=== PATIENT | male | born 1975 | race Caucasian/White ===

== ENCOUNTER 2019-01-23 06:59 | Day surgery (SDC) | payer BC ==
[2019-01-19 16:00] VITALS: BMI 40.3
--- NOTE | 2019-01-23 06:35 | P.GSHP ---
History of Present Illness H&P Date: 01/23/19 CHIEF COMPLAINT: Ventral hernia HISTORY OF PRESENT ILLNESS: The patient is a 43-year-old male who presents with a history of swelling and pain along the abdomen from a hernia. Now he presents for surgical intervention. PAST MEDICAL HISTORY: Please see list. PAST SURGICAL HISTORY: Please see list. MEDICATIONS: Please see list. ALLERGIES: Please see list. SOCIAL HISTORY: Please see list. FAMILY HISTORY: No reports of Crohn disease or ulcerative colitis. REVIEW OF ORGAN SYSTEMS: CONSTITUTIONAL: No reports of fevers or chills. No reports of weight loss despite prior attempts. GI: Denies any blood in stools or constipation. PHYSICAL EXAM: VITAL SIGNS: Stable GENERAL: Well-developed pleasant male in no acute distress. HEENT: No scleral icterus. Extraocular movements grossly intact. Moist buccal mucosa. NECK: Supple without lymphadenopathy. CHEST: Unlabored respirations. Equal bilateral excursions. CARDIOVASCULAR: Regular rate and rhythm. Distal 2+ pulses. ABDOMEN: Soft, nondistended. Palpable defect of the abdomen. No peritoneal signs. MUSCULOSKELETAL: No clubbing, cyanosis, or edema. ASSESSMENT: 1. Ventral hernia PLAN: 1. Recommend proceeding with robotic ventral hernia repair with mesh. 2. Benefits and risks of surgical intervention was discussed including possibility of open technique. 3. DVT prophylaxis. 4. Antibiotic prophylaxis. Past Medical History Past Medical History: GERD/Reflux, Sleep Apnea/CPAP/BIPAP Additional Past Medical History / Comment(s): lt knee pain and gives out on occas. has knee brace, hernia, sleep apnea no machine at this time History of Any Multi-Drug Resistant Organisms: None Reported Past Surgical History: No Surgical Hx Reported Additional Past Anesthesia/Blood Transfusion Reaction / Comment(s): has never has had anesthesia Smoking Status: Never smoker - Past Family History Mother Family Medical History: Diabetes Mellitus Father Family Medical History: Diabetes Mellitus Sister(s) Family Medical History: Cancer Additional Family Medical History / Comment(s): colon cancer Medications and Allergies Home Medications Medication Instructions Recorded Confirmed Type Cholecalciferol [Vitamin D3 (25 1,000 unit PO DAILY 01/19/19 01/19/19 History Mcg = 1000 Iu)] Diclofenac Sodium [Voltaren] 75 mg PO DAILY 01/19/19 01/19/19 History Famotidine [Pepcid] 40 mg PO DAILY 01/19/19 01/19/19 History Omeprazole 40 mg PO DAILY 01/19/19 01/19/19 History Allergies Allergy/AdvReac Type Severity Reaction Status Date / Time No Known Allergies Allergy Verified 01/19/19 15:49
[~2019-01-23 06:59] MED LIST: ACETAMINOPHEN TAB 500 MG TAB PO STA; DEXAMETHASONE SOD PHOSPHATE 10 MG/ML 1 ML VIAL IV ONE; GABAPENTIN 300 MG CAP PO STA; HEPARIN SODIUM,PORCINE 5,000 UNIT/ML 1 ML VIAL SQ ONE; HYDROmorphone 0.5 MG/0.5 ML SYRINGE IVP PRN; LACTATED RINGERS 1,000 ML IV SCH; LIDOCAINE 1% 20 ML VIAL (10MG/ML) FOR IV START INTRADERMA PRN; MIDAZOLAM 2 MG/2 ML VIAL IV PRN; ONDANSETRON 4 MG/2 ML VIAL IVP ONE; SCOPOLAMINE 1.5MG/72HR PATCH TRANSDERM ONE; ceFAZolin 3 GM in SODIUM CHLORIDE 0.9% 100 ML IVPB ONE
[2019-01-23 07:48] LABS: Basophils # (A) 0.1 k/uL (0-0.2); Basophils % (A) 1 %; Eosinophils # (A) 0.1 k/uL (0-0.7); Eosinophils % (A) 2 %; HCT 43.6 % (39.0-53.0); HGB 15.1 gm/dL (13.0-17.5); Lymphocytes # (A) 2.8 k/uL (1.0-4.8); Lymphocytes % (A) 32 %; MCH 30.1 pg (25.0-35.0); MCHC 34.6 g/dL (31.0-37.0); Mean Platelet Volume 6.2; Monocytes # (A) 0.5 k/uL (0-1.0); Monocytes % (A) 6 %; Neutrophils # (A) 5.1 k/uL (1.3-7.7); Neutrophils % (A) 59 %; Platelet Count 241 k/uL (150-450); RBC 5.01 m/uL (4.30-5.90); RDW 12.7 % (11.5-15.5); WBC 8.8 k/uL (3.8-10.6)
[2019-01-23] MEDS ORDERED: MIDAZOLAM 2 MG/2 ML VIAL IVP ONE (08:46)
[2019-01-23] MEDS ORDERED: ROCURONIUM BROMIDE 10 MG/ML 10 ML VIAL IV ONE (09:04)
[2019-01-23] MEDS ORDERED: LIDOCAINE 2%-EPI 1:100,000 20 ML VIAL ONE (09:04)
[2019-01-23] MEDS ORDERED: fentaNYL (PF) 50 MCG/ML 2 ML AMP ONE (09:04)
[2019-01-23] MEDS ORDERED: GLYCOPYRROLATE 0.2 MG/ML 2 ML VIAL ONE (09:04)
[2019-01-23] MEDS ORDERED: KETOROLAC 30 MG/ML 1 ML VIAL ONE (09:04)
[2019-01-23] MEDS ORDERED: SUCCINYLCHOLINE CHLORIDE VIAL 200 MG/10 ML VIAL IV ONE (09:04)
[2019-01-23] MEDS ORDERED: NEOSTIGMINE 1 MG/ML 10 ML VIAL ONE (09:04)
[2019-01-23] MEDS ORDERED: PROPOFOL 10 MG/ML 20 ML VIAL IV ONE (09:04)
[2019-01-23] MEDS ORDERED: ROPIVACAINE 5 MG/ML 30 ML VIAL ONE (09:04)
[2019-01-23] MEDS ORDERED: LIDOCAINE 1% INJ 10MG/ML (20 ML MDV) ONE (09:04)
[2019-01-23] MEDS ORDERED: LIDOCAINE 1%-EPI 1:100,000 20 ML VIAL SQ ONE (09:28)
--- NOTE | 2019-01-23 10:21 | P.OP ---
Date of Procedure: 01/23/19 Description of Procedure: SURGEON: CHERI BURROWS MD PREOPERATIVE DIAGNOSES: 1. Initial umbilical hernia with incarceration 2. Obstructive sleep apnea 3. Morbid obesity due to excess calories, BMI 41.9 4. Gastroesophageal reflux disease POSTOPERATIVE DIAGNOSES: 1. Initial umbilical hernia with incarceration, 1 cm 2. Obstructive sleep apnea 3. Morbid obesity due to excess calories, BMI 41.9 4. Gastroesophageal reflux disease OPERATION: 1. Robotic-assisted da Sandra Xi laparoscopic repair of initial incarcerated umbilical hernia 1 cm without mesh ANESTHESIA: General with local ESTIMATED BLOOD LOSS: 5 mL. SPECIMENS: None. COMPLICATIONS: None. INDICATIONS: The patient is a 43-year-old male who presents with initial umbilical hernia. Surgical intervention with laparoscopic versus robotic and open techniques were reviewed. Placement of mesh was also reviewed. Benefits and risks were thoroughly described. Informed consent was obtained. DESCRIPTION OF PROCEDURE: The patient was brought into the operating room and laid in supine position. After general induction, the abdomen had been prepped and draped in standard sterile fashion. Ioban draping was also placed. Prior to incision, a timeout protocol was confirmed with surgical team regarding the patient's name including procedures to be performed. The robot was primed prior to the procedure. A field block using local anesthetic was placed along hernia site including the proposed port sites. Initial incision was made with an #11 blade along the left upper quadrant. A 0 degree 5 mm laparoscopic trocar entry was performed. Diagnostic laparoscopy demonstrated an incarcerated umbilical hernia. Three 8 mm trocars were placed along the right lateral abdominal wall. Placements of the ports were 15 cm from the target anatomy and 9 cm apart. The da Sandra Xi robot was previously primed, prepped and draped then docked along the left side of the patient. I then sat at the robot Da Sandra Xi console where working arms of the robot were scissors, needle stage driver, and graspers placed by the optical assistant. Attention was brought to the umbilicus where an incarcerated umbilical hernia was identified containing fat and omentum. The incarcerated contents was reduced as the peritoneal fat was cleaned from the abdominal wall. Next, hemostasis was checked with cautery. The hernia defect of 1-cm was oversewn using #1 VLOC with fascial imbrication 3. A final endoscopic imaging was obtained. All instruments and pneumoperitoneum were evacuated from the abdominal cavity. The da Sandra Xi robot was undocked from the patient. I re-scrubbed into the case for closure of incisions. An umbilical dressing using 4 x 4 and Tegaderm was placed. The incisions were reapproximated using 4-0 Monocryl in an interrupted subcuticular fashion. Exofin liquid glue was applied to the skin after cleansing the skin with normal saline and dilute hydrogen peroxide. An abdominal binder was placed. At the end of the procedure, needle, sponge, and instrument count had been verified correct by ophthalmology surgical technician. The patient was taken to the postanesthesia care unit in stable condition. FINDINGS: 1. Intial incarcerated umbilical hernia, 1 cm with contents of omentum and peritoneal fat. Plan - Discharge Summary Discharge Rx Participant: No New Discharge Prescriptions: New Tamsulosin [Flomax] 0.4 mg PO DAILY #5 cap.er.24h Ibuprofen [Motrin] 600 mg PO Q8HR PRN #30 tab PRN Reason: Pain Acetaminophen Tab [Tylenol Tab] 500 mg PO Q6H PRN #30 tablet PRN Reason: Pain No Action Diclofenac Sodium [Voltaren] 75 mg PO DAILY Famotidine [Pepcid] 40 mg PO DAILY Omeprazole 40 mg PO DAILY Cholecalciferol [Vitamin D3 (25 Mcg = 1000 Iu)] 1,000 unit PO DAILY Discharge Medication List Cholecalciferol [Vitamin D3 (25 Mcg = 1000 Iu)] 1,000 unit PO DAILY 01/19/19 [History] Diclofenac Sodium [Voltaren] 75 mg PO DAILY 01/19/19 [History] Famotidine [Pepcid] 40 mg PO DAILY 01/19/19 [History] Omeprazole 40 mg PO DAILY 01/19/19 [History] Acetaminophen Tab [Tylenol Tab] 500 mg PO Q6H PRN #30 tablet 01/23/19 [Rx] Ibuprofen [Motrin] 600 mg PO Q8HR PRN #30 tab 01/23/19 [Rx] Tamsulosin [Flomax] 0.4 mg PO DAILY #5 cap.er.24h 01/23/19 [Rx] Follow up Appointment(s)/Referral(s): Cheri Burrows MD [STAFF PHYSICIAN] - 01/26/19 Patient Instructions/Handouts: Laparoscopic Herniorrhaphy (DC), Ventral Hernia Repair (DC) Activity/Diet/Wound Care/Special Instructions: No lifting for 4 pounds in 4 weeks until February 22. May shower. No bathtub soaks for 2 weeks until February 06. Wear abdominal binder daily for comfort except for showering. Do not remove umbilical dressing, if present. Will be removed by doctor. Discharge Disposition: HOME SELF-CARE
[2019-01-23 10:26] VITALS: TEMP 98.3
[2019-01-23 11:34] VITALS: RESP 16
--- NOTE | 2019-01-23 11:39 | P.ANPRN ---
Procedure Note - Anesthesia - Nerve Block Performed Bilateral Transversus Abdominis Single Time Out Performed: Yes Date of Procedure: 01/23/19 Procedure Start Time: 08:46 Procedure Stop Time: 09:03 Location of Patient Procedure: PreOp Indication: Acute Post-Operative Pain, Requested by Surgeon Sedation Type: Sedate with meaningful contact maintained Preparation: Sterile Prep Position: Supine Needle Types: Pajunk Needle Gauge: 21 Ultrasound used to visualize needle placement: Yes Ultrasound used to observe medication spread: Yes Blood Aspirated: No Pain Paresthesia on Injection Noted: No Resistance on Injection: Normal Image Stored and Saved: Yes Events: Uneventful and Well Tolerated (ropi .5% 15cc plus xylo 2% 5cc each side)
[2019-01-23 12:36] VITALS: BP 108/73; PULSE 92
== END 2019-01-23 13:12 | disposition home or self-care (01) ==
LOC: OR 06:59
PROVIDERS: ATTEND Surgery Plastic and Reconstructive Surgery
DX: K42.0 Umbilical hernia with obstruction, without gangrene (principal); G47.33 Obstructive sleep apnea (adult) (pediatric); E66.01 Morbid (severe) obesity due to excess calories; K21.9 Gastro-esophageal reflux disease without esophagitis; Z68.41 Body mass index [BMI] 40.0-44.9, adult; Z79.899 Other long term (current) drug therapy; Z83.3 Family history of diabetes mellitus; Z80.0 Family history of malignant neoplasm of digestive organs
CPT/HCPCS: 64488; 85025; 49653; J2250; J0330; J1644; J1100; J2710; J0690; J2405; J2001; J3010; J1885; J2795; J2704

== ENCOUNTER 2020-06-23 12:44 | Emergency (ER) | payer BC ==
[2020-06-23 13:03] VITALS: BP 110/87; PULSE 95; RESP 20; TEMP 97.9
--- NOTE | 2020-06-23 13:04 | ED ---
General Adult HPI - General Source: patient, RN notes reviewed Mode of arrival: ambulatory Limitations: no limitations <Darian Morrissey - Last Filed: 06/23/20 13:02> <Jarod Gaines - Last Filed: 06/23/20 13:41> - General Stated complaint: Sent by PCP - covid+, MAXIMO Time Seen by Provider: 06/23/20 13:02 - History of Present Illness Initial comments: 44-year-old male presents emergency Department chief complaint of covid. Patient states that he started with symptoms on 06/11/20 to suppository 06/13/20. Patient has taken outpatient steroids. Patient was seen by PCP today sent here for further evaluation at symptoms have worsened. Patient states she's had use of inhaler. Increasing shortness of breath. Patient had some fevers body a ches. (Darian Morrissey) This is a 44-year-old male who presents emergency Department stating his symptoms started on June 11 and diagnosed on June 13. Patient states over the last 4-5 days she's getting more short of breath so he wanted to come in to the hospital to be evaluated. Patient denies any fever chills patient denies any loss of taste or smell. Patient denies any abdominal pain patient denies chest pain or palpitation. Patient was oxygenating 97% on room air was talking to him. (Jarod Gaines) - Related Data Home Medications Medication Instructions Recorded Confirmed Cholecalciferol [Vitamin D3 (25 1,000 unit PO DAILY 01/19/19 01/19/19 Mcg = 1000 Iu)] Diclofenac Sodium [Voltaren] 75 mg PO DAILY 01/19/19 01/19/19 Famotidine [Pepcid] 40 mg PO DAILY 01/19/19 01/19/19 Omeprazole 40 mg PO DAILY 01/19/19 01/19/19 Previous Rx's Medication Instructions Recorded Acetaminophen Tab [Tylenol Tab] 500 mg PO Q6H PRN #30 tablet 01/23/19 Ibuprofen [Motrin] 600 mg PO Q8HR PRN #30 tab 01/23/19 Tamsulosin [Flomax] 0.4 mg PO DAILY #5 cap.er.24h 01/23/19 Albuterol Inhaler [Ventolin Hfa 2 puff INHALATION RT-QID #2 puff 06/23/20 Inhaler] Dexamethasone [Decadron] 6 mg PO DAILY #10 tablet 06/23/20 Allergies Allergy/AdvReac Type Severity Reaction Status Date / Time No Known Allergies Allergy Verified 06/23/20 13:03 Review of Systems ROS Other: All systems not noted in ROS Statement are negative. <GhanshyamDarian Lyon - Last Filed: 06/23/20 13:02> ROS Other: All systems not noted in ROS Statement are negative. <Jarod Gaines - Last Filed: 06/23/20 13:41> ROS Statement: Those systems with pertinent positive or pertinent negative responses have been documented in the HPI. Past Medical History Past Medical History: GERD/Reflux, Sleep Apnea/CPAP/BIPAP Additional Past Medical History / Comment(s): lt knee pain and gives out on occas. has knee brace, hernia, sleep apnea no machine at this time History of Any Multi-Drug Resistant Organisms: None Reported Past Surgical History: No Surgical Hx Reported Additional Past Anesthesia/Blood Transfusion Reaction / Comment(s): has never has had anesthesia Past Psychological History: No Psychological Hx Reported Past Alcohol Use History: Occasional Past Drug Use History: None Reported - Past Family History Mother Family Medical History: Diabetes Mellitus Father Family Medical History: Diabetes Mellitus Sister(s) Family Medical History: Cancer Additional Family Medical History / Comment(s): colon cancer <MedardodomiDarian Lyon - Last Filed: 06/23/20 13:02> General Exam <Jarod Gaines - Last Filed: 06/23/20 13:41> - General Exam Comments Initial Comments: GENERAL: Patient is well-developed and well-nourished. Patient is nontoxic and well- hydrated and is in no acute distress. ENT: Neck is soft and supple. No significant lymphadenopathy is noted. Oropharynx is clear. Moist mucous membranes. Neck has full range of motion without eliciting any pain. EYES: The sclera were anicteric and conjunctiva were pink and moist. Extraocular movements were intact and pupils were equal round and reactive to light. Eyelids were unremarkable. PULMONARY: Unlabored respirations. Good breath sounds bilaterally. Slight crackles at the bases CARDIOVASCULAR: There is a regular rate and rhythm without any murmurs gallops or rubs. ABDOMEN: Soft and nontender with normal bowel sounds. SKIN: Skin is clear with no lesions or rashes and otherwise unremarkable. NEUROLOGIC: Patient is alert and oriented x3. Cranial nerves II through XII are grossly intact. Motor and sensory are also intact. Normal speech, volume and content. Symmetrical smile. MUSCULOSKELETAL: Normal extremities with adequate strength and full range of motion. No lower extremity swelling or edema. No calf tenderness. LYMPHATICS: No significant lymphadenopathy is noted PSYCHIATRIC: Normal psychiatric evaluation. (Jarod Gaines) Course Vital Signs 06/23/20 13:01 Temperature 97.9 F Pulse Rate 95 Respiratory 20 Rate Blood Pressure 110/87 O2 Sat by Pulse 97 Oximetry Medical Decision Making <Jarod Gaines - Last Filed: 06/23/20 13:41> - Medical Decision Making Chest x-ray shows bilateral pulmonary infiltrates consistent with COVID pneumonia. (Jarod Gaines) Disposition <Darian Morrissey - Last Filed: 06/23/20 13:02> Is patient prescribed a controlled substance at d/c from ED?: No Time of Disposition: 13:37 <Jarod Gaines - Last Filed: 06/23/20 13:41> Clinical Impression: Pneumonia due to COVID-19 virus Disposition: HOME SELF-CARE Instructions (If sedation given, give patient instructions): Coronavirus Disease 2019 (COVID-19) Additional Instructions: Patient should return if any symptoms worsen or if he has any new symptoms. Prescriptions: Dexamethasone [Decadron] 6 mg PO DAILY #10 tablet Albuterol Inhaler [Ventolin Hfa Inhaler] 2 puff INHALATION RT-QID #2 puff Referrals: James Hernandez MD [Primary Care Provider] - 1-2 days
--- NOTE | 2020-06-23 13:45 | XR ---
EXAMINATION TYPE: XR chest 2V DATE OF EXAM: 06/23/2020 COMPARISON: None INDICATION: Short of breath TECHNIQUE: Frontal and lateral views of the chest are obtained. FINDINGS: The heart size is normal. The pulmonary vasculature is normal. Patchy bilateral lung infiltrates are present.. IMPRESSION: 1. Nonspecific patchy bilateral lung infiltrates. Correlate for atypical pneumonia
== END 2020-06-23 13:53 | disposition home or self-care (01) ==
LOC: EC 12:44
DX: U07.1 COVID-19 (principal); J12.82 Pneumonia due to coronavirus disease 2019; K21.9 Gastro-esophageal reflux disease without esophagitis; G47.30 Sleep apnea, unspecified; Z79.1 Long term (current) use of non-steroidal anti-inflammatories (NSAID); Z79.52 Long term (current) use of systemic steroids; Z79.899 Other long term (current) drug therapy
CPT/HCPCS: 71046; 99284

== ENCOUNTER 2022-09-21 11:26 | Day surgery (SDC) | payer BC ==
[2022-09-17 15:51] VITALS: BMI 40.4
[2022-09-21] MEDS ORDERED: LACTATED RINGERS 1,000 ML IV SCH (11:56)
[2022-09-21 12:13] VITALS: TEMP 97.7
[2022-09-21] MEDS ORDERED: LIDOCAINE 2% INJ 20 MG/ML (2 ML VIAL) ONE (13:38)
[2022-09-21] MEDS ORDERED: PROPOFOL 10 MG/ML 20 ML VIAL IV ONE (13:38)
--- NOTE | 2022-09-21 13:48 | P.PCN ---
Date of Procedure: 09/21/22 Procedure(s) Performed: BRIEF HISTORY: Patient is a 46-year-old, pleasant, white male as a part of evaluation of long-standing history of GERD and Cohen's esophagus. He is presently on omeprazole 20 mg daily and Pepcid as needed. PROCEDURE PERFORMED: Esophagogastroduodenoscopy with biopsy. PREOPERATIVE DIAGNOSIS: GERD/with esophagitis. IV sedation per anesthesia. PROCEDURE: After informed consent was obtained, the patient was brought into the endoscopy unit. IV sedation was administered by Anesthesia under continuous monitoring. Initially the Olympus GIF-140 video endoscope was inserted into the mouth. Esophagus intubated without any difficulty. It was gradually advanced into the stomach and duodenum and carefully examined. The bulb and the second part of the duodenum appeared normal. The scope at this time was withdrawn to the stomach, adequately insufflated with air, and upon careful examination, mucosa of the antrum, body, cardia and the fundus appeared normal. The scope was then withdrawn into the esophagus. Small hiatal hernia noted. The GE junction was located at 39 cm from the incisors. There were 2 tongues of Cohen's appearing mucosa extending 2mm mm proximal to the GE junction which was biopsied. The rest of the esophagus appeared normal. There were no erosions or ulcerations seen and the patient tolerated the procedure well. IMPRESSION: 1. Short segment Cohen's esophagus. 2. Small hiatal hernia. RECOMMENDATIONS: The findings of this examination were discussed with the patient as well as his family. He was advised to continue with omeprazole 20 mg daily and follow antireflux measures and use Pepcid as needed.. If the biopsies confirm the presence of Cohen's esophagus he can have a repeat upper endoscopy
[2022-09-21 14:30] VITALS: BP 106/70; PULSE 88; RESP 20
== END 2022-09-21 14:21 | disposition home or self-care (01) ==
LOC: ORWHC2ENDO 11:26
PROVIDERS: ATTEND Internal Medicine Gastroenterology
DX: K29.50 Unspecified chronic gastritis without bleeding (principal); K22.70 Barrett's esophagus without dysplasia; K44.9 Diaphragmatic hernia without obstruction or gangrene; G47.33 Obstructive sleep apnea (adult) (pediatric); E66.01 Morbid (severe) obesity due to excess calories; Z68.41 Body mass index [BMI] 40.0-44.9, adult; Z79.899 Other long term (current) drug therapy; Z98.890 Other specified postprocedural states
CPT/HCPCS: 88305; 43239; J2704; J2001